=== PATIENT | male | born 1960 | race Caucasian/White ===

== ENCOUNTER 2018-11-25 23:29 | Inpatient (IN) | payer BC, OTHER ==
[2018-11-26] MEDS ORDERED: Sodium Chloride 0.9% 10 ML Syringe FLUSH PRN (00:07)
[2018-11-26] MEDS ORDERED: Sodium Chloride 0.9% 1,000 ML IV STA (00:07)
[2018-11-26] MEDS ORDERED: Ondansetron 4 MG/2 ML SDV IVPUSH ONE (00:07)
[2018-11-26] MEDS ORDERED: Pantoprazole 40 MG Vial IVPUSH ONE (00:10)
[2018-11-26] MEDS: Pantoprazole 80 MG in Sodium Chloride 0.9% 100 ML IV SCH ×2 (00:25→10:45)
[2018-11-26] MEDS ORDERED: Sodium Chloride 0.9% 1,000 ML ONE (01:38)
[2018-11-26] MEDS ORDERED: Iopamidol 612 MG/ML 100 ML Bottle IVPUSH ONE (01:54)
--- NOTE | 2018-11-26 02:09 | EDM.PDOC ---
ED HPI GENERAL MEDICAL PROBLEM - General Chief Complaint: Gastrointestinal Problem Stated Complaint: BLOOD IN STOOL/DIZZY Time Seen by Provider: 11/25/18 23:56 Source of Information: Reports: Patient History Limitations: Reports: No Limitations - History of Present Illness INITIAL COMMENTS - FREE TEXT/NARRATIVE: The patient presents with dark stools and syncope. He says on Monday he did not feel right. He had some stomach pain and felt bloated. He took some prune juice and Monday he had some large stools. He continued to have more stools through the weekend and then they turned black with some red to them. He has not had trouble like this before. He has no history of ulcers. He has no history of drinking alcohol excessively. He may have a drink sometimes with dinner. He said he got up this morning to use the restroom and he got lightheaded and passed out. He did hit his head but he has no headache or neck pain. He does have an abrasion to the back of his head. He is not on any blood thinners and he has no other medical problems. He has no chest pain or shortness of breath. He has no nausea or vomiting now. When this all started he had some nausea but no vomiting. He has no abdominal pain. He did have a colonoscopy about 6 to 8 months ago that did show a couple polyps. Onset: Gradual Duration: Day(s): Improves with: Reports: None Worsens with: Reports: None Associated Symptoms: Denies: Chest Pain, Cough, Fever/Chills, Headaches, Nausea/ Vomiting, Shortness of Breath - Related Data Allergies Allergy/AdvReac Type Severity Reaction Status Date / Time No Known Allergies Allergy Verified 11/25/18 23:41 Home Meds: Home Meds . [No Known Home Meds] 11/25/18 [History] Past Medical History - Past Surgical History GI Surgical History: Reports: Colonoscopy Other GI Surgeries/Procedures: polyps Social & Family History - Tobacco Use Smoking Status *Q: Never Smoker - Caffeine Use Caffeine Use: Reports: Coffee - Recreational Drug Use Recreational Drug Use: No ED ROS GENERAL - Review of Systems Review Of Systems: See Below Constitutional: Reports: No Symptoms HEENT: Reports: No Symptoms Respiratory: Reports: No Symptoms Cardiovascular: Reports: Lightheadedness. Denies: Chest Pain Endocrine: Reports: No Symptoms GI/Abdominal: Reports: Black Stool, Nausea (Improved). Denies: Abdominal Pain, Vomiting : Reports: No Symptoms Musculoskeletal: Reports: No Symptoms ED EXAM, GI/ABD - Physical Exam Exam: See Below Exam Limited By: No Limitations General Appearance: Alert, No Apparent Distress Ears: Normal External Exam Nose: Normal Inspection Head: Normocephalic, Other (Abrasion to the occipital region) Neck: Normal Inspection, Supple, Non-Tender Respiratory/Chest: No Respiratory Distress, Lungs Clear, Normal Breath Sounds Cardiovascular: Regular Rate, Rhythm, No Edema, No Murmur GI/Abdominal Exam: Soft, Non-Tender, No Organomegaly, No Mass Rectal (Males) Exam: Black Stool, Heme + Stool Extremities: Normal Inspection Neurological: Alert, Oriented, No Motor/Sensory Deficits Course - Vital Signs Last Recorded V/S: Last Vital Signs Temp 96.9 F 11/25/18 23:33 Pulse 98 11/25/18 23:33 Resp 16 11/25/18 23:33 BP 131/83 11/25/18 23:33 Pulse Ox 100 11/25/18 23:33 Orthostatic Blood Pressure [ 75/55 Standing] Orthostatic Blood Pressure [ 100/63 Sitting] Orthostatic Blood Pressure [ 116/68 Supine] - Orders/Labs/Meds Orders: Active Orders 24 hr Category Date Time Status Orthostatic Vital Signs [RC] ASDIRECTED Care 11/25/18 23:39 Active Peripheral IV Care [RC] . DIRECTED Care 11/26/18 00:07 Active Abdomen Pelvis w Cont [CT] Stat Exams 11/26/18 00:07 Taken PATIENT RETYPE [BBK] Routine Lab 11/26/18 01:30 Ordered RED BLOOD CELLS LP [BBK] Stat Lab 11/26/18 01:30 Ordered Pantoprazole [ProTONIX IV] 80 mg Med 11/26/18 00:15 Active Sodium Chloride 0.9% [Normal Saline] 100 ml IV Q10H Sodium Chloride 0.9% [Saline Flush] Med 11/26/18 00:07 Active 10 ml FLUSH ASDIRECTED PRN ED Antiemetic Medication Reflex [OM.PC] Stat Oth 11/26/18 00:07 Ordered Peripheral IV Insertion Adult [OM.PC] Stat Oth 11/26/18 00:07 Ordered Transfuse PRBC [Transfuse Red Blood Cells] [COMM] Stat Oth 11/26/18 02:45 Ordered Medication Orders Pantoprazole Sodium 80 mg/ (Sodium Chloride) 100 mls @ 10 mls/hr IV Q10H [facility] Last Admin: 11/26/18 00:25 Dose: 10 mls/hr Sodium Chloride (Saline Flush) 10 ml FLUSH ASDIRECTED PRN PRN Reason: Keep Vein Open Last Admin: 11/26/18 00:27 Dose: 10 ml Labs: Laboratory Tests 11/26/18 11/26/18 11/26/18 Range/Units 00:00 00:00 00:00 WBC 6.90 (4.23-9.07) K/mm3 RBC 2.83 L (4.63-6.08) M/mm3 Hgb 8.8 L (13.7-17.5) gm/L Hct 25.5 L (40.1-51.0) % MCV 90.1 (79.0-92.2) fl MCH 31.1 (25.7-32.2) pg MCHC 34.5 (32.2-35.5) g/dl RDW Std Deviation 38.8 (35.1-43.9) fL Plt Count 201 (163-337) K/mm3 MPV 9.5 (9.4-12.3) fl Neut % (Auto) 58.1 (34.0-67.9) % Lymph % (Auto) 25.2 (21.8-53.1) % [place] % (Auto) 13.2 H (5.3-12.2) % Eos % (Auto) 2.8 (0.8-7.0) Baso % (Auto) 0.6 (0.1-1.2) % Neut # (Auto) 4.01 (1.78-5.38) K/mm3 Lymph # (Auto) 1.74 (1.32-3.57) K/mm3 [place] # (Auto) 0.91 H (0.30-0.82) K/mm3 Eos # (Auto) 0.19 (0.04-0.54) K/mm3 Baso # (Auto) 0.04 (0.01-0.08) K/mm3 Sodium 138 (136-145) mEq/L Potassium 3.6 (3.5-5.1) mEq/L Chloride 106 (98-107) mEq/L Carbon Dioxide 23 (21-32) mEq/L Anion Gap 12.6 (5-15) BUN 48 H (7-18) mg/dL Creatinine 1.0 (0.7-1.3) mg/dL Est Cr Clr Drug Dosing 88.38 mL/min Estimated GFR (MDRD) > 60 (>60) mL/min BUN/Creatinine Ratio 48.0 H (14-18) Glucose 136 H (74-106) mg/dL Calcium 7.6 L (8.5-10.1) mg/dL Total Bilirubin 0.4 (0.2-1.0) mg/dL AST 12 L (15-37) U/L ALT 20 (16-63) U/L Alkaline Phosphatase 55 (46-116) U/L Total Protein 5.1 L (6.4-8.2) g/dl Albumin 2.8 L (3.4-5.0) g/dl Globulin 2.3 gm/dL Albumin/Globulin Ratio 1.2 (1-2) Lipase 79 (73-393) U/L Blood Type O POSITIVE Gel Antibody Screen Negative 11/26/18 Range/Units 02:24 WBC (4.23-9.07) K/mm3 RBC (4.63-6.08) M/mm3 Hgb 7.8 L (13.7-17.5) gm/L Hct 23.0 L (40.1-51.0) % MCV (79.0-92.2) fl MCH (25.7-32.2) pg MCHC (32.2-35.5) g/dl RDW Std Deviation (35.1-43.9) fL Plt Count (163-337) K/mm3 MPV (9.4-12.3) fl Neut % (Auto) (34.0-67.9) % Lymph % (Auto) (21.8-53.1) % [place] % (Auto) (5.3-12.2) % Eos % (Auto) (0.8-7.0) Baso % (Auto) (0.1-1.2) % Neut # (Auto) (1.78-5.38) K/mm3 Lymph # (Auto) (1.32-3.57) K/mm3 [place] # (Auto) (0.30-0.82) K/mm3 Eos # (Auto) (0.04-0.54) K/mm3 Baso # (Auto) (0.01-0.08) K/mm3 Sodium (136-145) mEq/L Potassium (3.5-5.1) mEq/L Chloride (98-107) mEq/L Carbon Dioxide (21-32) mEq/L Anion Gap (5-15) BUN (7-18) mg/dL Creatinine (0.7-1.3) mg/dL Est Cr Clr Drug Dosing mL/min Estimated GFR (MDRD) (>60) mL/min BUN/Creatinine Ratio (14-18) Glucose (74-106) mg/dL Calcium (8.5-10.1) mg/dL Total Bilirubin (0.2-1.0) mg/dL AST (15-37) U/L ALT (16-63) U/L Alkaline Phosphatase (46-116) U/L Total Protein (6.4-8.2) g/dl Albumin (3.4-5.0) g/dl Globulin gm/dL Albumin/Globulin Ratio (1-2) Lipase (73-393) U/L Blood Type Gel Antibody Screen Meds: Medications Generic Name Dose Route Start Last Admin Trade Name Freq PRN Reason Stop Dose Admin Pantoprazole Sodium 80 mg/ 100 mls @ 10 mls/hr 11/26/18 00:15 11/26/18 00:25 Sodium Chloride IV 10 mls/hr Q10H [facility] Administration Sodium Chloride 10 ml 11/26/18 00:07 11/26/18 00:27 Saline Flush FLUSH 10 ml ASDIRECTED PRN Administration Keep Vein Open Discontinued Medications Generic Name Dose Route Start Last Admin Trade Name Freq PRN Reason Stop Dose Admin Sodium Chloride 1,000 mls @ 1,000 mls/hr 11/26/18 00:07 11/26/18 00:21 Normal Saline IV 11/26/18 01:06 1,000 mls/hr .BOLUS STA Administration Sodium Chloride Confirm 11/26/18 01:38 Normal Saline Administered 11/26/18 01:39 Dose 1,000 mls @ as directed .ROUTE .STK-MED ONE Iopamidol 100 ml 11/26/18 01:54 11/26/18 01:57 Isovue-300 (61%) IVPUSH 11/26/18 01:55 100 ml ONETIME ONE Administration Ondansetron HCl 4 mg 11/26/18 00:07 11/26/18 00:22 Zofran IVPUSH 11/26/18 00:08 4 mg ONETIME ONE Administration Pantoprazole Sodium 80 mg 11/26/18 00:10 11/26/18 00:23 Protonix Iv IVPUSH 11/26/18 00:11 80 mg BOLUS ONE Administration - Re-Assessments/Exams Free Text/Narrative Re-Assessment/Exam: 11/26/18 02:10 I ordered an IV NS 1L bolus. With orthostatic BPs his blood pressure dropped into the 70s with standing and he was symptomatic. I also ordered labs, zofran 4mg IV, protonix bolus of 80mg IV and a drip at 8mg/hr, labs and a CT of his abdomen and pelvis. His Hgb is 8.8. His BUN was 48. His glucose was 136. He got light headed and dizzy when they got him up to go to the CT. His BP was 112/60. I ordered another liter of fluid. 11/26/18 02:[address] shows nondilated fluid/oral contrast filled small bowel loops with possible mild proximal small bowel wall thickening. Liquid stool/liquid oral contrast within the colon. Findings can suggest gastroenteritis/diarrheal disease. No CT findings or acute appendicitis. Additional nonemergent CT findings. I ordered a repeat HH and his Hgb dropped to 7.8. I ordered 2 units of PRBCs. I feel he needs to be admitted. I called Dr Glass and he agreed to the admission. I also called Dr Pastrana and she was willing to be on consult. Departure - Departure Time of Disposition: 04:00 Disposition: Admitted As Inpatient 65 Condition: Serious Clinical Impression: Orthostatic hypotension GI bleed Qualifiers: GI bleed type/associated pathology: melena Qualified Code(s): K92.1 - Melena Anemia Qualifiers: Anemia type: other cause Other causes of anemia: other cause, not classified Qualified Code(s): D64.89 - Other specified anemias - Discharge Information Referrals: Dick Espino MD [Primary Care Provider] - Forms: ED Department Discharge - My Orders Last 24 Hours: My Active Orders 11/25/18 23:39 Orthostatic Vital Signs [RC] ASDIRECTED 11/26/18 00:07 Peripheral IV Care [RC] . DIRECTED Abdomen Pelvis w Cont [CT] Stat Sodium Chloride 0.9% [Saline Flush] 10 ml FLUSH ASDIRECTED PRN ED Antiemetic Medication Reflex [OM.PC] Stat Peripheral IV Insertion Adult [OM.PC] Stat 11/26/18 00:15 Pantoprazole [ProTONIX IV] 80 mg Sodium Chloride 0.9% [Normal Saline] 100 ml IV Q10H 11/26/18 01:30 PATIENT RETYPE [BBK] Routine RED BLOOD CELLS LP [BBK] Stat 11/26/18 02:45 Transfuse PRBC [Transfuse Red Blood Cells] [COMM] Stat - Assessment/Plan Last 24 Hours: My Active Orders 11/25/18 23:39 Orthostatic Vital Signs [RC] ASDIRECTED 11/26/18 00:07 Peripheral IV Care [RC] . DIRECTED Abdomen Pelvis w Cont [CT] Stat Sodium Chloride 0.9% [Saline Flush] 10 ml FLUSH ASDIRECTED PRN ED Antiemetic Medication Reflex [OM.PC] Stat Peripheral IV Insertion Adult [OM.PC] Stat 11/26/18 00:15 Pantoprazole [ProTONIX IV] 80 mg Sodium Chloride 0.9% [Normal Saline] 100 ml IV Q10H 11/26/18 01:30 PATIENT RETYPE [BBK] Routine RED BLOOD CELLS LP [BBK] Stat 11/26/18 02:45 Transfuse PRBC [Transfuse Red Blood Cells] [COMM] Stat
--- NOTE | 2018-11-26 07:43 | PCM.HP ---
H&P History of Present Illness - General Date of Service: 11/26/18 Admit Problem/Dx: Admission Diagnosis/Problem Admission Diagnosis/Problem GI bleed not requiring more than 4 units of blood in 24 hours, ICU, or surgery Source of Information: Patient, Old Records, Provider, RN, RN Notes Reviewed History Limitations: Reports: No Limitations - Related Data Allergies/Adverse Reactions: Allergies Allergy/AdvReac Type Severity Reaction Status Date / Time No Known Allergies Allergy Verified 11/26/18 04:44 Home Medications: Home Meds . [No Known Home Meds] 11/25/18 [History] Past Medical History - Past Health History Medical/Surgical History: Denies Medical/Surgical History - Past Surgical History GI Surgical History: Reports: Colonoscopy Other GI Surgeries/Procedures: polyps Social & Family History - Tobacco Use Smoking Status *Q: Never Smoker Second Hand Smoke Exposure: No - Caffeine Use Caffeine Use: Reports: None - Recreational Drug Use Recreational Drug Use: No Exam - Vital Signs Vital Signs: Last Vital Signs Temp 98.1 F 11/26/18 06:36 Pulse 79 11/26/18 06:36 Resp 19 11/26/18 06:36 BP 132/70 11/26/18 06:24 Pulse Ox 100 11/26/18 04:29 Orthostatic Blood Pressure [ 75/55 Standing] Orthostatic Blood Pressure [ 100/63 Sitting] Orthostatic Blood Pressure [ 116/68 Supine] Weight: 231 lb 11.2 oz - Patient Data Lab Results Last 24 hrs: Laboratory Results - last 24 hr 11/26/18 11/26/18 11/26/18 Range/Units 00:00 00:00 00:00 WBC 6.90 (4.23-9.07) K/mm3 RBC 2.83 L (4.63-6.08) M/mm3 Hgb 8.8 L (13.7-17.5) gm/L Hct 25.5 L (40.1-51.0) % MCV 90.1 (79.0-92.2) fl MCH 31.1 (25.7-32.2) pg MCHC 34.5 (32.2-35.5) g/dl RDW Std Deviation 38.8 (35.1-43.9) fL Plt Count 201 (163-337) K/mm3 MPV 9.5 (9.4-12.3) fl Neut % (Auto) 58.1 (34.0-67.9) % Lymph % (Auto) 25.2 (21.8-53.1) % [place] % (Auto) 13.2 H (5.3-12.2) % Eos % (Auto) 2.8 (0.8-7.0) Baso % (Auto) 0.6 (0.1-1.2) % Neut # (Auto) 4.01 (1.78-5.38) K/mm3 Lymph # (Auto) 1.74 (1.32-3.57) K/mm3 [place] # (Auto) 0.91 H (0.30-0.82) K/mm3 Eos # (Auto) 0.19 (0.04-0.54) K/mm3 Baso # (Auto) 0.04 (0.01-0.08) K/mm3 Sodium 138 (136-145) mEq/L Potassium 3.6 (3.5-5.1) mEq/L Chloride 106 (98-107) mEq/L Carbon Dioxide 23 (21-32) mEq/L Anion Gap 12.6 (5-15) BUN 48 H (7-18) mg/dL Creatinine 1.0 (0.7-1.3) mg/dL Est Cr Clr Drug Dosing 88.38 mL/min Estimated GFR (MDRD) > 60 (>60) mL/min BUN/Creatinine Ratio 48.0 H (14-18) Glucose 136 H (74-106) mg/dL Calcium 7.6 L (8.5-10.1) mg/dL Total Bilirubin 0.4 (0.2-1.0) mg/dL AST 12 L (15-37) U/L ALT 20 (16-63) U/L Alkaline Phosphatase 55 (46-116) U/L Total Protein 5.1 L (6.4-8.2) g/dl Albumin 2.8 L (3.4-5.0) g/dl Globulin 2.3 gm/dL Albumin/Globulin Ratio 1.2 (1-2) Lipase 79 (73-393) U/L Blood Type O POSITIVE Gel Antibody Screen Negative Crossmatch See Detail 11/26/18 11/26/18 Range/Units 02:24 02:24 WBC (4.23-9.07) K/mm3 RBC (4.63-6.08) M/mm3 Hgb 7.8 L (13.7-17.5) gm/L Hct 23.0 L (40.1-51.0) % MCV (79.0-92.2) fl MCH (25.7-32.2) pg MCHC (32.2-35.5) g/dl RDW Std Deviation (35.1-43.9) fL Plt Count (163-337) K/mm3 MPV (9.4-12.3) fl Neut % (Auto) (34.0-67.9) % Lymph % (Auto) (21.8-53.1) % [place] % (Auto) (5.3-12.2) % Eos % (Auto) (0.8-7.0) Baso % (Auto) (0.1-1.2) % Neut # (Auto) (1.78-5.38) K/mm3 Lymph # (Auto) (1.32-3.57) K/mm3 [place] # (Auto) (0.30-0.82) K/mm3 Eos # (Auto) (0.04-0.54) K/mm3 Baso # (Auto) (0.01-0.08) K/mm3 Sodium (136-145) mEq/L Potassium (3.5-5.1) mEq/L Chloride (98-107) mEq/L Carbon Dioxide (21-32) mEq/L Anion Gap (5-15) BUN (7-18) mg/dL Creatinine (0.7-1.3) mg/dL Est Cr Clr Drug Dosing mL/min Estimated GFR (MDRD) (>60) mL/min BUN/Creatinine Ratio (14-18) Glucose (74-106) mg/dL Calcium (8.5-10.1) mg/dL Total Bilirubin (0.2-1.0) mg/dL AST (15-37) U/L ALT (16-63) U/L Alkaline Phosphatase (46-116) U/L Total Protein (6.4-8.2) g/dl Albumin (3.4-5.0) g/dl Globulin gm/dL Albumin/Globulin Ratio (1-2) Lipase (73-393) U/L Blood Type Gel Antibody Screen Crossmatch See Detail Result Diagrams: 11/26/18 02:24 11/26/18 00:00 Orders Last 24hrs: Active Orders 24 hr Category Date Time Status Patient Status [ADT] Routine ADT 11/26/18 03:57 Active Notify Provider Consults [RC] ASDIRECTED Care 11/26/18 03:04 Active Orthostatic Vital Signs [RC] ASDIRECTED Care 11/25/18 23:39 Active Consult to Physician [CONS] Routine Cons 11/26/18 03:03 Active Abdomen Pelvis w Cont [CT] Stat Exams 11/26/18 00:07 Taken Pantoprazole [ProTONIX IV] 80 mg Med 11/26/18 00:15 Active Sodium Chloride 0.9% [Normal Saline] 100 ml IV Q10H Sodium Chloride 0.9% [Saline Flush] Med 11/26/18 00:07 Active 10 ml FLUSH ASDIRECTED PRN ED Antiemetic Medication Reflex [OM.PC] Stat Oth 11/26/18 00:07 Ordered Peripheral IV Insertion Adult [OM.PC] Stat Oth 11/26/18 00:07 Ordered Transfuse PRBC [Transfuse Red Blood Cells] [COMM] Stat Oth 11/26/18 02:45 Ordered Code Status [Resuscitation Status] Routine Resus Stat 11/26/18 04:49 Ordered Medication Orders Pantoprazole Sodium 80 mg/ (Sodium Chloride) 100 mls @ 10 mls/hr IV Q10H [facility] Last Admin: 11/26/18 00:25 Dose: 10 mls/hr Sodium Chloride (Saline Flush) 10 ml FLUSH ASDIRECTED PRN PRN Reason: Keep Vein Open Last Admin: 11/26/18 00:27 Dose: 10 ml
--- NOTE | 2018-11-26 08:43 | PCM.PREANE ---
Preanesthetic Assessment - Physical Assessment Vital Signs: Last Vital Signs Temp 37.2 C 11/26/18 08:00 Pulse 79 11/26/18 06:36 Resp 16 11/26/18 08:00 BP 125/68 11/26/18 08:00 Pulse Ox 95 11/26/18 08:28 Orthostatic Blood Pressure [ 75/55 Standing] Orthostatic Blood Pressure [ 100/63 Sitting] Orthostatic Blood Pressure [ 116/68 Supine] - Lab Values: Laboratory Last Values WBC 6.90 K/mm3 (4.23-9.07) 11/26/18 00:00 RBC 2.83 M/mm3 (4.63-6.08) L 11/26/18 00:00 Hgb 7.8 gm/L (13.7-17.5) L 11/26/18 02:24 Hct 23.0 % (40.1-51.0) L 11/26/18 02:24 MCV 90.1 fl (79.0-92.2) 11/26/18 00:00 MCH 31.1 pg (25.7-32.2) 11/26/18 00:00 MCHC 34.5 g/dl (32.2-35.5) 11/26/18 00:00 RDW Std Deviation 38.8 fL (35.1-43.9) 11/26/18 00:00 Plt Count 201 K/mm3 (163-337) 11/26/18 00:00 MPV 9.5 fl (9.4-12.3) 11/26/18 00:00 Neut % (Auto) 58.1 % (34.0-67.9) 11/26/18 00:00 Lymph % (Auto) 25.2 % (21.8-53.1) 11/26/18 00:00 [place] % (Auto) 13.2 % (5.3-12.2) H 11/26/18 00:00 Eos % (Auto) 2.8 (0.8-7.0) 11/26/18 00:00 Baso % (Auto) 0.6 % (0.1-1.2) 11/26/18 00:00 Neut # (Auto) 4.01 K/mm3 (1.78-5.38) 11/26/18 00:00 Lymph # (Auto) 1.74 K/mm3 (1.32-3.57) 11/26/18 00:00 [place] # (Auto) 0.91 K/mm3 (0.30-0.82) H 11/26/18 00:00 Eos # (Auto) 0.19 K/mm3 (0.04-0.54) 11/26/18 00:00 Baso # (Auto) 0.04 K/mm3 (0.01-0.08) 11/26/18 00:00 Sodium 138 mEq/L (136-145) 11/26/18 00:00 Potassium 3.6 mEq/L (3.5-5.1) 11/26/18 00:00 Chloride 106 mEq/L (98-107) 11/26/18 00:00 Carbon Dioxide 23 mEq/L (21-32) 11/26/18 00:00 Anion Gap 12.6 (5-15) 11/26/18 00:00 BUN 48 mg/dL (7-18) H 11/26/18 00:00 Creatinine 1.0 mg/dL (0.7-1.3) 11/26/18 00:00 Est Cr Clr Drug Dosing 88.38 mL/min 11/26/18 00:00 Estimated GFR (MDRD) > 60 mL/min (>60) 11/26/18 00:00 BUN/Creatinine Ratio 48.0 (14-18) H 11/26/18 00:00 Glucose 136 mg/dL (74-106) H 11/26/18 00:00 Calcium 7.6 mg/dL (8.5-10.1) L 11/26/18 00:00 Total Bilirubin 0.4 mg/dL (0.2-1.0) 11/26/18 00:00 AST 12 U/L (15-37) L 11/26/18 00:00 ALT 20 U/L (16-63) 11/26/18 00:00 Alkaline Phosphatase 55 U/L (46-116) 11/26/18 00:00 Total Protein 5.1 g/dl (6.4-8.2) L 11/26/18 00:00 Albumin 2.8 g/dl (3.4-5.0) L 11/26/18 00:00 Globulin 2.3 gm/dL 11/26/18 00:00 Albumin/Globulin Ratio 1.2 (1-2) 11/26/18 00:00 Lipase 79 U/L (73-393) 11/26/18 00:00 Blood Type O POSITIVE 11/26/18 00:00 Gel Antibody Screen Negative 11/26/18 00:00 Crossmatch See Detail 11/26/18 02:24 - Allergies Allergies/Adverse Reactions: Allergies Allergy/AdvReac Type Severity Reaction Status Date / Time No Known Allergies Allergy Verified 11/26/18 04:44 PreAnesthesia Questionnaire - Past Health History Medical/Surgical History: Denies Medical/Surgical History - Past Surgical History GI Surgical History: Reports: Colonoscopy Other GI Surgeries/Procedures: polyps - SUBSTANCE USE Smoking Status *Q: Never Smoker Second Hand Smoke Exposure: No Recreational Drug Use History: No - HOME MEDS Home Medications: Home Meds Pantoprazole Sodium [Protonix] 40 mg PO BID #60 tablet. 11/27/18 [Rx] - CURRENT (IN HOUSE) MEDS Current Meds: Current Medications Pantoprazole Sodium 80 mg/ (Sodium Chloride) 100 mls @ 10 mls/hr IV Q10H [facility] Last Admin: 11/26/18 00:25 Dose: 10 mls/hr Sodium Chloride (Saline Flush) 10 ml FLUSH ASDIRECTED PRN PRN Reason: Keep Vein Open Last Admin: 11/26/18 00:27 Dose: 10 ml Discontinued Medications Sodium Chloride (Normal Saline) 1,000 mls @ 1,000 mls/hr IV .BOLUS STA Stop: 11/26/18 01:06 Last Admin: 11/26/18 00:21 Dose: 1,000 mls/hr Sodium Chloride (Normal Saline) Confirm Administered Dose 1,000 mls @ as directed .ROUTE .STK-MED ONE Stop: 11/26/18 01:39 Last Admin: 11/26/18 04:51 Dose: Not Given Iopamidol (Isovue-300 (61%)) 100 ml IVPUSH ONETIME ONE Stop: 11/26/18 01:55 Last Admin: 11/26/18 01:57 Dose: 100 ml Ondansetron HCl (Zofran) 4 mg IVPUSH ONETIME ONE Stop: 11/26/18 00:08 Last Admin: 11/26/18 00:22 Dose: 4 mg Pantoprazole Sodium (Protonix Iv) 80 mg IVPUSH BOLUS ONE Stop: 11/26/18 00:11 Last Admin: 11/26/18 00:23 Dose: 80 mg
[2018-11-26] MEDS ORDERED: Lactated Ringers 1,000 ML IV SCH (10:30)
[2018-11-26] MEDS ORDERED: Ondansetron 4 MG/2 ML SDV IV PRN (10:39)
--- NOTE | 2018-11-26 10:41 | CT ---
CT abdomen and pelvis Technique: Multiple axial sections were obtained from above the dome of the diaphragm inferiorly through the pubic symphysis. Intravenous and oral contrast was utilized. Delayed images were obtained through the bladder. Comparison: No prior abdominal imaging. Findings: Small portion of the visualized lung bases are clear. Liver contains no focal parenchymal abnormality. Spleen appears within normal limits. Adrenal glands show no nodule. Pancreas is within normal limits. Kidneys show symmetric contrast enhancement without hydronephrosis or mass. Gallbladder contains no calcified gallstones. Kidneys show symmetric contrast enhancement without hydronephrosis or mass. Aorta shows atherosclerotic calcification without aneurysm. No retroperitoneal adenopathy is seen. Appendix is seen which is normal in size. No pelvic mass or adenopathy is seen. Contrast seen within nondilated small bowel loops as well as within colon. No evidence of small bowel obstruction is seen. Bone window settings were reviewed which show disc space narrowing at L5-S1 with vacuum phenomena. Lesser disc space narrowing with anterior endplate osteophytes are seen within the lower thoracic spine. Delayed images show contrast within the distal ureter and bladder. Impression: 1. Incidental findings. Nothing acute is appreciated. Diagnostic code #2 I agree with preliminary report from [facility], finalized on 11/26/18, 3:26 AM Central Time , code #2
[2018-11-26] MEDS ORDERED: Magnesium Sulfate/Water 4 GM in Premix Bag 1 BAG IV ONE (10:45)
--- NOTE | 2018-11-26 11:06 | PCM.HP ---
H&P History of Present Illness - General Date of Service: 11/26/18 Admit Problem/Dx: Admission Diagnosis/Problem Admission Diagnosis/Problem GI bleed not requiring more than 4 units of blood in 24 hours, ICU, or surgery - History of Present Illness Initial Comments - Free Text/Narative: Through the emergency room for admission secondary to a GI bleed. He states that 10:30 PM last night patient woke up with crampy abdominal pain, stool incontinence, and syncope. Patient will wait into the bathroom became lightheaded and passed out. Patient had difficulty getting up but when he did he had black tarry stool with solid fecal matter and watery stool. Patient did hit the back of his head and had a small abrasion evaluate by ER. Patient came to the emergency room with dizziness and was noted to be anemic with an initial hemoglobin of 8.8. Patient was also orthostatic and repeat hemoglobin after fluid resuscitation was 7.8. Patient had 2 more dark stools in the emergency room and a maroon color stool when he arrived on the floor. He received 2 units packed red blood cells this morning. Currently patient denies any lower abdominal pain. Patient states that a couple of weeks ago he did develop some digestive system problems. He generally describes it as dyspepsia and not feeling right. He took some NyQuil, prune juice, and Advil. He states over the last couple weeks he's had Advil 600 mg 2 times per week. On Monday he also had some reflux while at work and went home. He did work Monday and Monday, but after going to sleep Monday night came into the hospital. He is a nonsmoker quit 5 years ago. He smoked for approximately 20 years but less than one pack per day. Only occasional alcohol and no illicit drugs. - Related Data Allergies/Adverse Reactions: Allergies Allergy/AdvReac Type Severity Reaction Status Date / Time No Known Allergies Allergy Verified 11/26/18 04:44 Home Medications: Home Meds . [No Known Home Meds] 11/25/18 [History] Past Medical History - Past Health History Medical/Surgical History: Denies Medical/Surgical History - Past Surgical History GI Surgical History: Reports: Colonoscopy Other GI Surgeries/Procedures: polyps Social & Family History - Tobacco Use Smoking Status *Q: Never Smoker Second Hand Smoke Exposure: No - Caffeine Use Caffeine Use: Reports: None - Recreational Drug Use Recreational Drug Use: No H&P Review of Systems - Review of Systems: Review Of Systems: ROS reveals no pertinent complaints other than HPI. General: Reports: Fatigue, Decreased Appetite Exam - Exam Exam: See Below - Vital Signs Vital Signs: Last Vital Signs Temp 99 F 11/26/18 08:50 Pulse 81 11/26/18 08:42 Resp 16 11/26/18 08:50 BP 106/69 11/26/18 08:50 Pulse Ox 95 11/26/18 08:50 Orthostatic Blood Pressure [ 75/55 Standing] Orthostatic Blood Pressure [ 100/63 Sitting] Orthostatic Blood Pressure [ 116/68 Supine] Weight: 231 lb 11.2 oz - Exam Quality Assessment: Supplemental Oxygen General: Alert, Oriented HEENT: Conjunctiva Clear, Mucosa Moist & [place], Posterior Pharynx Clear Neck: Supple, Trachea Midline Lungs: Clear to Auscultation, Normal Respiratory Effort Cardiovascular: Regular Rate, Regular Rhythm GI/Abdominal Exam: Normal Bowel Sounds, Soft, Non-Tender, No Organomegaly, No Distention Extremities: Normal Inspection, Normal Range of Motion, Non-Tender, No Pedal Edema Skin: Warm, Dry, Intact Neurological: Cranial Nerves Intact, Reflexes Equal Bilateral Neuro Extensive - Mental Status: Alert, Oriented x3, Normal Mood/Affect, Normal Cognition Neuro Extensive - Motor, Sensory, Reflexes: CN II-XII Intact Psychiatric: Alert, Normal Affect, Normal Mood - Patient Data Lab Results Last 24 hrs: Laboratory Results - last 24 hr 11/26/18 11/26/18 11/26/18 Range/Units 00:00 00:00 00:00 WBC 6.90 (4.23-9.07) K/mm3 RBC 2.83 L (4.63-6.08) M/mm3 Hgb 8.8 L (13.7-17.5) gm/L Hct 25.5 L (40.1-51.0) % MCV 90.1 (79.0-92.2) fl MCH 31.1 (25.7-32.2) pg MCHC 34.5 (32.2-35.5) g/dl RDW Std Deviation 38.8 (35.1-43.9) fL Plt Count 201 (163-337) K/mm3 MPV 9.5 (9.4-12.3) fl Neut % (Auto) 58.1 (34.0-67.9) % Lymph % (Auto) 25.2 (21.8-53.1) % [place] % (Auto) 13.2 H (5.3-12.2) % Eos % (Auto) 2.8 (0.8-7.0) Baso % (Auto) 0.6 (0.1-1.2) % Neut # (Auto) 4.01 (1.78-5.38) K/mm3 Lymph # (Auto) 1.74 (1.32-3.57) K/mm3 [place] # (Auto) 0.91 H (0.30-0.82) K/mm3 Eos # (Auto) 0.19 (0.04-0.54) K/mm3 Baso # (Auto) 0.04 (0.01-0.08) K/mm3 Sodium 138 (136-145) mEq/L Potassium 3.6 (3.5-5.1) mEq/L Chloride 106 (98-107) mEq/L Carbon Dioxide 23 (21-32) mEq/L Anion Gap 12.6 (5-15) BUN 48 H (7-18) mg/dL Creatinine 1.0 (0.7-1.3) mg/dL Est Cr Clr Drug Dosing 88.38 mL/min Estimated GFR (MDRD) > 60 (>60) mL/min BUN/Creatinine Ratio 48.0 H (14-18) Glucose 136 H (74-106) mg/dL Calcium 7.6 L (8.5-10.1) mg/dL Magnesium (1.8-2.4) mg/dl Total Bilirubin 0.4 (0.2-1.0) mg/dL AST 12 L (15-37) U/L ALT 20 (16-63) U/L Alkaline Phosphatase 55 (46-116) U/L Total Protein 5.1 L (6.4-8.2) g/dl Albumin 2.8 L (3.4-5.0) g/dl Globulin 2.3 gm/dL Albumin/Globulin Ratio 1.2 (1-2) Lipase 79 (73-393) U/L Blood Type O POSITIVE Gel Antibody Screen Negative Crossmatch See Detail 11/26/18 11/26/18 11/26/18 Range/Units 02:24 02:24 10:07 WBC (4.23-9.07) K/mm3 RBC (4.63-6.08) M/mm3 Hgb 7.8 L (13.7-17.5) gm/L Hct 23.0 L (40.1-51.0) % MCV (79.0-92.2) fl MCH (25.7-32.2) pg MCHC (32.2-35.5) g/dl RDW Std Deviation (35.1-43.9) fL Plt Count (163-337) K/mm3 MPV (9.4-12.3) fl Neut % (Auto) (34.0-67.9) % Lymph % (Auto) (21.8-53.1) % [place] % (Auto) (5.3-12.2) % Eos % (Auto) (0.8-7.0) Baso % (Auto) (0.1-1.2) % Neut # (Auto) (1.78-5.38) K/mm3 Lymph # (Auto) (1.32-3.57) K/mm3 [place] # (Auto) (0.30-0.82) K/mm3 Eos # (Auto) (0.04-0.54) K/mm3 Baso # (Auto) (0.01-0.08) K/mm3 Sodium 139 (136-145) mEq/L Potassium 4.1 (3.5-5.1) mEq/L Chloride 105 (98-107) mEq/L Carbon Dioxide 24 (21-32) mEq/L Anion Gap 14.1 (5-15) BUN 26 H (7-18) mg/dL Creatinine 0.8 (0.7-1.3) mg/dL Est Cr Clr Drug Dosing 110.47 mL/min Estimated GFR (MDRD) > 60 (>60) mL/min BUN/Creatinine Ratio 32.5 H (14-18) Glucose 124 H (74-106) mg/dL Calcium 7.6 L (8.5-10.1) mg/dL Magnesium 1.5 L (1.8-2.4) mg/dl Total Bilirubin (0.2-1.0) mg/dL AST (15-37) U/L ALT (16-63) U/L Alkaline Phosphatase (46-116) U/L Total Protein (6.4-8.2) g/dl Albumin (3.4-5.0) g/dl Globulin gm/dL Albumin/Globulin Ratio (1-2) Lipase (73-393) U/L Blood Type Gel Antibody Screen Crossmatch See Detail 11/26/18 Range/Units 10:07 WBC 7.90 (4.23-9.07) K/mm3 RBC 3.14 L (4.63-6.08) M/mm3 Hgb 9.7 L D (13.7-17.5) gm/L Hct 27.7 L (40.1-51.0) % MCV 88.2 (79.0-92.2) fl MCH 30.9 (25.7-32.2) pg MCHC 35.0 (32.2-35.5) g/dl RDW Std Deviation 41.5 (35.1-43.9) fL Plt Count 177 (163-337) K/mm3 MPV 9.5 (9.4-12.3) fl Neut % (Auto) 75.4 H (34.0-67.9) % Lymph % (Auto) 14.4 L (21.8-53.1) % [place] % (Auto) 9.6 (5.3-12.2) % Eos % (Auto) 0.4 L (0.8-7.0) Baso % (Auto) 0.1 (0.1-1.2) % Neut # (Auto) 5.95 H (1.78-5.38) K/mm3 Lymph # (Auto) 1.14 L (1.32-3.57) K/mm3 [place] # (Auto) 0.76 (0.30-0.82) K/mm3 Eos # (Auto) 0.03 L (0.04-0.54) K/mm3 Baso # (Auto) 0.01 (0.01-0.08) K/mm3 Sodium (136-145) mEq/L Potassium (3.5-5.1) mEq/L Chloride (98-107) mEq/L Carbon Dioxide (21-32) mEq/L Anion Gap (5-15) BUN (7-18) mg/dL Creatinine (0.7-1.3) mg/dL Est Cr Clr Drug Dosing mL/min Estimated GFR (MDRD) (>60) mL/min BUN/Creatinine Ratio (14-18) Glucose (74-106) mg/dL Calcium (8.5-10.1) mg/dL Magnesium (1.8-2.4) mg/dl Total Bilirubin (0.2-1.0) mg/dL AST (15-37) U/L ALT (16-63) U/L Alkaline Phosphatase (46-116) U/L Total Protein (6.4-8.2) g/dl Albumin (3.4-5.0) g/dl Globulin gm/dL Albumin/Globulin Ratio (1-2) Lipase (73-393) U/L Blood Type Gel Antibody Screen Crossmatch Result Diagrams: 11/26/18 10:07 11/26/18 10:07 - Problem List (1) Anemia SNOMED Code(s): 330886220 ICD Code: D64.9 - ANEMIA, UNSPECIFIED Status: Acute Current Visit: Yes Qualifiers: Anemia type: other cause Other causes of anemia: other cause, not classified Qualified Code(s): D64.89 - Other specified anemias (2) GI bleed SNOMED Code(s): 61144462 ICD Code: K92.2 - GASTROINTESTINAL HEMORRHAGE, UNSPECIFIED Status: Acute Current Visit: Yes Qualifiers: GI bleed type/associated pathology: melena Qualified Code(s): K92.1 - Melena Problem List Initiated/Reviewed/Updated: Yes Orders Last 24hrs: Active Orders 24 hr Category Date Time Status Patient Status [ADT] Routine ADT 11/26/18 03:57 Active Antiembolic Devices [RC] PER UNIT ROUTINE Care 11/26/18 08:22 Active Notify Provider Consults [RC] ASDIRECTED Care 11/26/18 03:04 Active Orthostatic Vital Signs [RC] ASDIRECTED Care 11/25/18 23:39 Active Oxygen Therapy [RC] PRN Care 11/26/18 10:39 Ordered Up ad Nemo [RC] ASDIRECTED Care 11/26/18 10:39 Ordered VTE/DVT Education [RC] PER UNIT ROUTINE Care 11/26/18 10:39 Ordered Consult to Physician [CONS] Routine Cons 11/26/18 03:03 Active NPO [Nothing Per Oral Diet] [DIET] Diet 11/26/18 Lunch Active CBC WITH AUTO DIFF [HEME] AM Lab 11/27/18 05:11 Ordered COMPREHENSIVE METABOLIC PN,CMP [CHEM] AM Lab 11/27/18 05:11 Ordered HEMOGLOBIN/HEMATOCRIT,HH [HEME] Routine Lab 11/26/18 14:00 Ordered MAGNESIUM [CHEM] AM Lab 11/27/18 05:11 Ordered Lactated Ringers [Ringers, Lactated] 1,000 ml Med 11/26/18 10:30 Active IV ASDIRECTED Magnesium Sulfate/Water [Magnesium Sulfate in Water Med 11/26/18 10:45 Active Premix] 4 gm Premix Bag 1 bag IV ONETIME Ondansetron [Zofran] Med 11/26/18 10:39 Ordered 4 mg IV Q4H PRN Pantoprazole [ProTONIX IV] 80 mg Med 11/26/18 00:15 Active Sodium Chloride 0.9% [Normal Saline] 100 ml IV Q10H Sodium Chloride 0.9% [Saline Flush] Med 11/26/18 00:07 Active 10 ml FLUSH ASDIRECTED PRN ED Antiemetic Medication Reflex [OM.PC] Stat Oth 11/26/18 00:07 Ordered Peripheral IV Insertion Adult [OM.PC] Stat Oth 11/26/18 00:07 Ordered SCD [Sequential Compression Device] [OM.PC] Routine Oth 11/26/18 08:22 Ordered Transfuse PRBC [Transfuse Red Blood Cells] [COMM] Stat Ot 11/26/18 02:45 Ordered Code Status [Resuscitation Status] Routine Resus Stat 11/26/18 04:49 Ordered Medication Orders Pantoprazole Sodium 80 mg/ (Sodium Chloride) 100 mls @ 10 mls/hr IV Q10H [facility] Last Admin: 11/26/18 10:45 Dose: 10 mls/hr Infusion: 11/26/18 10:25 Dose: 10 mls/hr Admin: 11/26/18 00:25 Dose: 10 mls/hr Lactated Ringer's (Ringers, Lactated) 1,000 mls @ 125 mls/hr IV ASDIRECTED [facility] Last Admin: 11/26/18 10:48 Dose: 125 mls/hr Magnesium Sulfate 4 gm/ Premix 50 mls @ 12.5 mls/hr IV ONETIME ONE Stop: 11/26/18 14:44 Last Admin: 11/26/18 10:51 Dose: 12.5 mls/hr Ondansetron HCl (Zofran) 4 mg IV Q4H PRN PRN Reason: Nausea/Vomiting Sodium Chloride (Saline Flush) 10 ml FLUSH ASDIRECTED PRN PRN Reason: Keep Vein Open Last Admin: 11/26/18 00:27 Dose: 10 ml Assessment/Plan Comment:: assessment * 49-year-old male with no chronic medical history presents with acute melena and symptomatic anemia. * initial hemoglobin in the emergency room was 8.8 dropping to 7.8 with fluid resuscitation. * 2 units packed red blood cells were given by the emergency room physician * Surgery consult via the ER doctor Plan * Follow H&H every 4 hours until stable * Consult Dr. Pastrana in surgery * continue Protonix drip until seen by surgery * Nothing by mouth except ice chips * LR 125 ml/h * replenish magnesium * CODE STATUS: Full code * VT prophylaxis with SCDs * Length of stay likely 1-2 days. * No chronic medical problems
--- NOTE | 2018-11-26 15:27 | PCM.CONS ---
H&P History of Present Illness - General Date of Service: 11/26/18 Admit Problem/Dx: Admission Diagnosis/Problem Admission Diagnosis/Problem GI bleed not requiring more than 4 units of blood in 24 hours, ICU, or surgery Source of Information: Patient, Provider History Limitations: Reports: No Limitations - History of Present Illness Initial Comments - Free Text/Narative: The patient is a 57 y/o male who presents with melena. He reports not feeling well for the past two weeks with occasional abdominal pain. He tried prune juice for constipation, but did not fully have relief despite more frequent bowel movements. He had more pain 5 days ago and noted that his stool was darker in color. The pain was located in the epigastrium. He continued to have darker stool and more abdominal pain over the next couple of days. One day ago he was at home and had fiona melena after which she felt dizzy and lightheaded. The patient reports falling from weakness but did not have actual syncope. He presented to the emergency department where he underwent evaluation including labs that revealed hemoglobin of 8.8. Recheck of the hemoglobin after 1 hour was 7.8. He did have CT scan was not revealing for any acute findings. He was admitted for observation and monitoring of stable. He received 2 units of packed red blood cells. He reports having more melena since his admission but decreased amount. - Related Data Allergies/Adverse Reactions: Allergies Allergy/AdvReac Type Severity Reaction Status Date / Time No Known Allergies Allergy Verified 11/26/18 04:44 Home Medications: Home Meds . [No Known Home Meds] 11/25/18 [History] Past Medical History - Past Health History Medical/Surgical History: Denies Medical/Surgical History - Past Surgical History GI Surgical History: Reports: Colonoscopy Other GI Surgeries/Procedures: polyps Social & Family History - Family History Cardiac: Reports: IN - Tobacco Use Smoking Status *Q: Never Smoker Second Hand Smoke Exposure: No - Caffeine Use Caffeine Use: Reports: None - Recreational Drug Use Recreational Drug Use: No H&P Review of Systems - Review of Systems: Review Of Systems: See Below General: Reports: Weakness HEENT: Reports: No Symptoms Pulmonary: Reports: No Symptoms Cardiovascular: Reports: No Symptoms Gastrointestinal: Reports: Abdominal Pain, Black Stool, Nausea Genitourinary: Reports: No Symptoms Musculoskeletal: Reports: No Symptoms Skin: Reports: No Symptoms Psychiatric: Reports: No Symptoms Hematologic/Lymphatic: Reports: No Symptoms Immunologic: Reports: No Symptoms Exam - Exam Exam: See Below - Vital Signs Vital Signs: Last Vital Signs Temp 36.8 C 11/26/18 12:00 Pulse 81 11/26/18 08:42 Resp 16 11/26/18 12:00 BP 127/78 11/26/18 12:00 Pulse Ox 99 11/26/18 12:00 Orthostatic Blood Pressure [ 75/55 Standing] Orthostatic Blood Pressure [ 100/63 Sitting] Orthostatic Blood Pressure [ 116/68 Supine] Weight: 105.097 kg - Exam Quality Assessment: No: Supplemental Oxygen General: Alert, Oriented HEENT: Conjunctiva Clear, EOMI Neck: Supple Lungs: Clear to Auscultation, Normal Respiratory Effort Cardiovascular: Regular Rate, Regular Rhythm GI/Abdominal Exam: Soft, Non-Tender, No Distention Extremities: Normal Inspection, No Pedal Edema Peripheral Pulses: 2+: Dorsalis Pedis (L), Dorsalis Pedis (R) Skin: Warm, Dry, Intact Neurological: Cranial Nerves Intact Neuro Extensive - Mental Status: Oriented x3, Normal Mood/Affect - Patient Data Lab Results Last 24 hrs: Laboratory Results - last 24 hr 11/26/18 11/26/18 11/26/18 Range/Units 00:00 00:00 00:00 WBC 6.90 (4.23-9.07) K/mm3 RBC 2.83 L (4.63-6.08) M/mm3 Hgb 8.8 L (13.7-17.5) gm/L Hct 25.5 L (40.1-51.0) % MCV 90.1 (79.0-92.2) fl MCH 31.1 (25.7-32.2) pg MCHC 34.5 (32.2-35.5) g/dl RDW Std Deviation 38.8 (35.1-43.9) fL Plt Count 201 (163-337) K/mm3 MPV 9.5 (9.4-12.3) fl Neut % (Auto) 58.1 (34.0-67.9) % Lymph % (Auto) 25.2 (21.8-53.1) % [place] % (Auto) 13.2 H (5.3-12.2) % Eos % (Auto) 2.8 (0.8-7.0) Baso % (Auto) 0.6 (0.1-1.2) % Neut # (Auto) 4.01 (1.78-5.38) K/mm3 Lymph # (Auto) 1.74 (1.32-3.57) K/mm3 [place] # (Auto) 0.91 H (0.30-0.82) K/mm3 Eos # (Auto) 0.19 (0.04-0.54) K/mm3 Baso # (Auto) 0.04 (0.01-0.08) K/mm3 Sodium 138 (136-145) mEq/L Potassium 3.6 (3.5-5.1) mEq/L Chloride 106 (98-107) mEq/L Carbon Dioxide 23 (21-32) mEq/L Anion Gap 12.6 (5-15) BUN 48 H (7-18) mg/dL Creatinine 1.0 (0.7-1.3) mg/dL Est Cr Clr Drug Dosing 88.38 mL/min Estimated GFR (MDRD) > 60 (>60) mL/min BUN/Creatinine Ratio 48.0 H (14-18) Glucose 136 H (74-106) mg/dL Calcium 7.6 L (8.5-10.1) mg/dL Magnesium (1.8-2.4) mg/dl Total Bilirubin 0.4 (0.2-1.0) mg/dL AST 12 L (15-37) U/L ALT 20 (16-63) U/L Alkaline Phosphatase 55 (46-116) U/L Total Protein 5.1 L (6.4-8.2) g/dl Albumin 2.8 L (3.4-5.0) g/dl Globulin 2.3 gm/dL Albumin/Globulin Ratio 1.2 (1-2) Lipase 79 (73-393) U/L Blood Type O POSITIVE Gel Antibody Screen Negative Crossmatch See Detail 11/26/18 11/26/18 11/26/18 Range/Units 02:24 02:24 10:07 WBC (4.23-9.07) K/mm3 RBC (4.63-6.08) M/mm3 Hgb 7.8 L (13.7-17.5) gm/L Hct 23.0 L (40.1-51.0) % MCV (79.0-92.2) fl MCH (25.7-32.2) pg MCHC (32.2-35.5) g/dl RDW Std Deviation (35.1-43.9) fL Plt Count (163-337) K/mm3 MPV (9.4-12.3) fl Neut % (Auto) (34.0-67.9) % Lymph % (Auto) (21.8-53.1) % [place] % (Auto) (5.3-12.2) % Eos % (Auto) (0.8-7.0) Baso % (Auto) (0.1-1.2) % Neut # (Auto) (1.78-5.38) K/mm3 Lymph # (Auto) (1.32-3.57) K/mm3 [place] # (Auto) (0.30-0.82) K/mm3 Eos # (Auto) (0.04-0.54) K/mm3 Baso # (Auto) (0.01-0.08) K/mm3 Sodium 139 (136-145) mEq/L Potassium 4.1 (3.5-5.1) mEq/L Chloride 105 (98-107) mEq/L Carbon Dioxide 24 (21-32) mEq/L Anion Gap 14.1 (5-15) BUN 26 H (7-18) mg/dL Creatinine 0.8 (0.7-1.3) mg/dL Est Cr Clr Drug Dosing 110.47 mL/min Estimated GFR (MDRD) > 60 (>60) mL/min BUN/Creatinine Ratio 32.5 H (14-18) Glucose 124 H (74-106) mg/dL Calcium 7.6 L (8.5-10.1) mg/dL Magnesium 1.5 L (1.8-2.4) mg/dl Total Bilirubin (0.2-1.0) mg/dL AST (15-37) U/L ALT (16-63) U/L Alkaline Phosphatase (46-116) U/L Total Protein (6.4-8.2) g/dl Albumin (3.4-5.0) g/dl Globulin gm/dL Albumin/Globulin Ratio (1-2) Lipase (73-393) U/L Blood Type Gel Antibody Screen Crossmatch See Detail 11/26/18 11/26/18 Range/Units 10:07 14:00 WBC 7.90 (4.23-9.07) K/mm3 RBC 3.14 L (4.63-6.08) M/mm3 Hgb 9.7 L D 10.0 L (13.7-17.5) gm/L Hct 27.7 L 29.0 L (40.1-51.0) % MCV 88.2 (79.0-92.2) fl MCH 30.9 (25.7-32.2) pg MCHC 35.0 (32.2-35.5) g/dl RDW Std Deviation 41.5 (35.1-43.9) fL Plt Count 177 (163-337) K/mm3 MPV 9.5 (9.4-12.3) fl Neut % (Auto) 75.4 H (34.0-67.9) % Lymph % (Auto) 14.4 L (21.8-53.1) % [place] % (Auto) 9.6 (5.3-12.2) % Eos % (Auto) 0.4 L (0.8-7.0) Baso % (Auto) 0.1 (0.1-1.2) % Neut # (Auto) 5.95 H (1.78-5.38) K/mm3 Lymph # (Auto) 1.14 L (1.32-3.57) K/mm3 [place] # (Auto) 0.76 (0.30-0.82) K/mm3 Eos # (Auto) 0.03 L (0.04-0.54) K/mm3 Baso # (Auto) 0.01 (0.01-0.08) K/mm3 Sodium (136-145) mEq/L Potassium (3.5-5.1) mEq/L Chloride (98-107) mEq/L Carbon Dioxide (21-32) mEq/L Anion Gap (5-15) BUN (7-18) mg/dL Creatinine (0.7-1.3) mg/dL Est Cr Clr Drug Dosing mL/min Estimated GFR (MDRD) (>60) mL/min BUN/Creatinine Ratio (14-18) Glucose (74-106) mg/dL Calcium (8.5-10.1) mg/dL Magnesium (1.8-2.4) mg/dl Total Bilirubin (0.2-1.0) mg/dL AST (15-37) U/L ALT (16-63) U/L Alkaline Phosphatase (46-116) U/L Total Protein (6.4-8.2) g/dl Albumin (3.4-5.0) g/dl Globulin gm/dL Albumin/Globulin Ratio (1-2) Lipase (73-393) U/L Blood Type Gel Antibody Screen Crossmatch Result Diagrams: 11/26/18 14:00 11/26/18 10:07 Consult PN Assessment/Plan (1) GI bleed SNOMED Code(s): 39328449 Code(s): K92.2 - GASTROINTESTINAL HEMORRHAGE, UNSPECIFIED Current Visit: Yes Qualifiers: GI bleed type/associated pathology: melena Qualified Code(s): K92.1 - Melena Problem List Initiated/Reviewed/Updated: Yes Plan: 57-year-old male with upper GI bleed. The bleeding appears to be stabilized at this point - We discussed an EGD at this time during hospitalization with possible intervention. The patient would like to wait and have this done as an outpatient. Because of the high risk of complications of intervention is needed and the patient appears to be stabilizing. - Continue on PPI therapy, transition to PO PPI prior to discharge - Monitor hemoglobin every 4-6 hours - Consider advancing diet once 8 hours if stable. Hemoglobins have been achieved - Patient will be appropriate for discharge home if he continues to have stable hemoglobin and is tolerating regular diet Please call if patient has any change in status or need for any urgent surgical intervention. Surgery will sign off Tyra Sharma MD General Surgery
[2018-11-27] MEDS ORDERED: Pantoprazole 40 MG Vial IVPUSH SCH (09:00)
[2018-11-27] MEDS ORDERED: Pantoprazole 40 MG Tab.CR PO SCH (18:00)
--- NOTE | 2018-11-27 18:01 | PCM.DCSUM1 ---
Discharge Summary - Hospital Course HPI Initial Comments: Through the emergency room for admission secondary to a GI bleed. He states that 10:30 PM last night patient woke up with crampy abdominal pain, stool incontinence, and syncope. Patient will wait into the bathroom became lightheaded and passed out. Patient had difficulty getting up but when he did he had black tarry stool with solid fecal matter and watery stool. Patient did hit the back of his head and had a small abrasion evaluate by ER. Patient came to the emergency room with dizziness and was noted to be anemic with an initial hemoglobin of 8.8. Patient was also orthostatic and repeat hemoglobin after fluid resuscitation was 7.8. Patient had 2 more dark stools in the emergency room and a maroon color stool when he arrived on the floor. He received 2 units packed red blood cells this morning. Currently patient denies any lower abdominal pain. Patient states that a couple of weeks ago he did develop some digestive system problems. He generally describes it as dyspepsia and not feeling right. He took some NyQuil, prune juice, and Advil. He states over the last couple weeks he's had Advil 600 mg 2 times per week. On Monday he also had some reflux while at work and went home. He did work Monday and Monday, but after going to sleep Monday night came into the hospital. He is a nonsmoker quit 5 years ago. He smoked for approximately 20 years but less than one pack per day. Only occasional alcohol and no illicit drugs. Brief History: Patient was placed on Protonix drip and switched to by mouth Protonix morning. Start regular diet at lunch and has tolerated that well. Patient's hemoglobin stabilized last night in the mid to upper eights and has been 8.9 for last 12 hours and 8.648 hours prior to that. Patient has no abdominal pain and is doing well. Diagnosis: Stroke: No - Discharge Data Discharge Date: 11/27/18 Discharge Disposition: Home, Self-Care 01 Condition: Good - Discharge Diagnosis/Problem(s) (1) Anemia SNOMED Code(s): 482466357 ICD Code: D64.9 - ANEMIA, UNSPECIFIED Status: Acute Current Visit: Yes Qualifiers: Anemia type: other cause Other causes of anemia: other cause, not classified Qualified Code(s): D64.89 - Other specified anemias (2) GI bleed SNOMED Code(s): 36184371 ICD Code: K92.2 - GASTROINTESTINAL HEMORRHAGE, UNSPECIFIED Status: Acute Current Visit: Yes Qualifiers: GI bleed type/associated pathology: melena Qualified Code(s): K92.1 - Melena - Patient Summary/Data Consults: Consultations 11/26/18 03:03 Consult to Physician [CONS] Routine - Patient Instructions Diet: Usual Diet as Tolerated Driving: May Drive Today Showering/Bathing: May Shower - Discharge Plan *PRESCRIPTION DRUG MONITORING PROGRAM REVIEWED*: Not Applicable *COPY OF PRESCRIPTION DRUG MONITORING REPORT IN PATIENT THOM: Not Applicable Prescriptions/Med Rec: Pantoprazole Sodium [Protonix] 40 mg PO BID #60 tablet. Home Medications: Home Meds Pantoprazole Sodium [Protonix] 40 mg PO BID #60 tablet. 11/27/18 [Rx] Oxygen Therapy Mode: Room Air Patient Handouts: Complete Blood Count, Hypotension, [id number], Near-Syncope , [id number], Gastrointestinal Bleeding, [id number], Blood Transfusion, Adult, Care After, [place], Bloody Diarrhea Forms: ED Department Discharge Referrals: Tyra Sharma MD [Physician] - 12/03/18 11:15 am (Follow up in 1 week at [facility] on December 03 at 11:15 to discuss your need for an EGD to evaluate the source of your bleeding.) Dick Espino MD [Primary Care Provider] - (Please schedule a hospital follow-up appointment for Monday, November 30. You will need to have your hemoglobin checked at this appointment. ) - Discharge Summary/Plan Comment DC Time >30 min.: Yes Discharge Summary/Plan Comment: Patient did well after 2 units of packed red blood cells. He stabilized his hemoglobin at 8.9. He will follow up with his primary care provider in 2 days for recheck hemoglobin. His son is staying with him for the next 24-48 hours and he understands if he becomes lightheaded, dizzy, develops abdominal pain, or passes black tarry stools or right red blood per rectum he will come back to the emergency room. He'll be placed on Protonix 40 mg twice a day. Follow-up with Dr. Pastrana in surgery. - General Info Date of Service: 11/27/18 Admission Dx/Problem (Free Text: Admission Diagnosis/Problem Admission Diagnosis/Problem GI bleed not requiring more than 4 units of blood in 24 hours, ICU, or surgery Subjective Update: Patient denies any abdominal pain. He did have a few more bowel movements overnight with dark blood, but that resolved over the afternoon. He is walking in the halls and denies any dizziness or lightheadedness. He is requesting go home. Functional Status: Reports: Pain Controlled - Review of Systems General: Reports: No Symptoms HEENT: Reports: No Symptoms Pulmonary: Reports: No Symptoms Cardiovascular: Reports: No Symptoms Gastrointestinal: Reports: No Symptoms. Denies: Abdominal Pain, Diarrhea - Patient Data Vitals - Most Recent: Last Vital Signs Temp 98.2 F 11/27/18 17:27 Pulse 70 11/27/18 17:27 Resp 14 11/27/18 17:27 BP 138/77 11/27/18 17:27 Pulse Ox 95 11/27/18 17:27 Orthostatic Blood Pressure [ 75/55 Standing] Orthostatic Blood Pressure [ 100/63 Sitting] Orthostatic Blood Pressure [ 116/68 Supine] Weight - Most Recent: 232 lb 3.2 oz I&O - Last 24 hours: Intake & Output 11/27/18 11/27/18 11/27/18 06:59 14:59 22:59 Intake Total 6219 587 2985 Balance 2370 952 1943 Lab Results - Last 24 hrs: Laboratory Results - last 24 hr 11/26/18 11/26/18 11/27/18 Range/Units 18:05 23:50 03:05 WBC (4.23-9.07) K/mm3 RBC (4.63-6.08) M/mm3 Hgb 10.2 L 8.7 L D 8.6 L (13.7-17.5) gm/L Hct 29.2 L 25.4 L (40.1-51.0) % MCV (79.0-92.2) fl MCH (25.7-32.2) pg MCHC (32.2-35.5) g/dl RDW Std Deviation (35.1-43.9) fL Plt Count (163-337) K/mm3 MPV (9.4-12.3) fl Neut % (Auto) (34.0-67.9) % Lymph % (Auto) (21.8-53.1) % [place] % (Auto) (5.3-12.2) % Eos % (Auto) (0.8-7.0) Baso % (Auto) (0.1-1.2) % Neut # (Auto) (1.78-5.38) K/mm3 Lymph # (Auto) (1.32-3.57) K/mm3 [place] # (Auto) (0.30-0.82) K/mm3 Eos # (Auto) (0.04-0.54) K/mm3 Baso # (Auto) (0.01-0.08) K/mm3 Sodium (136-145) mEq/L Potassium (3.5-5.1) mEq/L Chloride (98-107) mEq/L Carbon Dioxide (21-32) mEq/L Anion Gap (5-15) BUN (7-18) mg/dL Creatinine (0.7-1.3) mg/dL Est Cr Clr Drug Dosing mL/min Estimated GFR (MDRD) (>60) mL/min BUN/Creatinine Ratio (14-18) Glucose (74-106) mg/dL Calcium (8.5-10.1) mg/dL Magnesium (1.8-2.4) mg/dl Total Bilirubin (0.2-1.0) mg/dL AST (15-37) U/L ALT (16-63) U/L Alkaline Phosphatase (46-116) U/L Total Protein (6.4-8.2) g/dl Albumin (3.4-5.0) g/dl Globulin gm/dL Albumin/Globulin Ratio (1-2) 11/27/18 11/27/18 11/27/18 Range/Units 05:28 05:28 11:05 WBC 5.46 (4.23-9.07) K/mm3 RBC 2.82 L (4.63-6.08) M/mm3 Hgb 8.6 L 8.9 L (13.7-17.5) gm/L Hct 25.6 L 26.9 L (40.1-51.0) % MCV 90.8 (79.0-92.2) fl MCH 30.5 (25.7-32.2) pg MCHC 33.6 (32.2-35.5) g/dl RDW Std Deviation 43.7 (35.1-43.9) fL Plt Count 147 L (163-337) K/mm3 MPV 9.2 L (9.4-12.3) fl Neut % (Auto) 69.2 H (34.0-67.9) % Lymph % (Auto) 17.4 L (21.8-53.1) % [place] % (Auto) 11.4 (5.3-12.2) % Eos % (Auto) 1.6 (0.8-7.0) Baso % (Auto) 0.2 (0.1-1.2) % Neut # (Auto) 3.78 (1.78-5.38) K/mm3 Lymph # (Auto) 0.95 L (1.32-3.57) K/mm3 [place] # (Auto) 0.62 (0.30-0.82) K/mm3 Eos # (Auto) 0.09 (0.04-0.54) K/mm3 Baso # (Auto) 0.01 (0.01-0.08) K/mm3 Sodium 140 (136-145) mEq/L Potassium 4.1 (3.5-5.1) mEq/L Chloride 107 (98-107) mEq/L Carbon Dioxide 28 (21-32) mEq/L Anion Gap 9.1 (5-15) BUN 13 (7-18) mg/dL Creatinine 0.8 (0.7-1.3) mg/dL Est Cr Clr Drug Dosing 110.47 mL/min Estimated GFR (MDRD) > 60 (>60) mL/min BUN/Creatinine Ratio 16.3 (14-18) Glucose 113 H (74-106) mg/dL Calcium 8.0 L (8.5-10.1) mg/dL Magnesium 2.0 (1.8-2.4) mg/dl Total Bilirubin 0.5 (0.2-1.0) mg/dL AST 13 L (15-37) U/L ALT 17 (16-63) U/L Alkaline Phosphatase 50 (46-116) U/L Total Protein 5.0 L (6.4-8.2) g/dl Albumin 2.5 L (3.4-5.0) g/dl Globulin 2.5 gm/dL Albumin/Globulin Ratio 1.0 (1-2) // Range/Units 17:05 WBC (4.23-9.07) K/mm3 RBC (4.63-6.08) M/mm3 Hgb 8.9 L (13.7-17.5) gm/L Hct (40.1-51.0) % MCV (79.0-92.2) fl MCH (25.7-32.2) pg MCHC (32.2-35.5) g/dl RDW Std Deviation (35.1-43.9) fL Plt Count (163-337) K/mm3 MPV (9.4-12.3) fl Neut % (Auto) (34.0-67.9) % Lymph % (Auto) (21.8-53.1) % [place] % (Auto) (5.3-12.2) % Eos % (Auto) (0.8-7.0) Baso % (Auto) (0.1-1.2) % Neut # (Auto) (1.78-5.38) K/mm3 Lymph # (Auto) (1.32-3.57) K/mm3 [place] # (Auto) (0.30-0.82) K/mm3 Eos # (Auto) (0.04-0.54) K/mm3 Baso # (Auto) (0.01-0.08) K/mm3 Sodium (136-145) mEq/L Potassium (3.5-5.1) mEq/L Chloride (98-107) mEq/L Carbon Dioxide (21-32) mEq/L Anion Gap (5-15) BUN (7-18) mg/dL Creatinine (0.7-1.3) mg/dL Est Cr Clr Drug Dosing mL/min Estimated GFR (MDRD) (>60) mL/min BUN/Creatinine Ratio (14-18) Glucose (74-106) mg/dL Calcium (8.5-10.1) mg/dL Magnesium (1.8-2.4) mg/dl Total Bilirubin (0.2-1.0) mg/dL AST (15-37) U/L ALT (16-63) U/L Alkaline Phosphatase (46-116) U/L Total Protein (6.4-8.2) g/dl Albumin (3.4-5.0) g/dl Globulin gm/dL Albumin/Globulin Ratio (1-2) Med Orders - Current: Current Medications Ondansetron HCl (Zofran) 4 mg IV Q4H PRN PRN Reason: Nausea/Vomiting Pantoprazole Sodium (Protonix) 40 mg PO ACBREAKFAST [facility] Sodium Chloride (Saline Flush) 10 ml FLUSH ASDIRECTED PRN PRN Reason: Keep Vein Open Last Admin: 11/26/18 00:27 Dose: 10 ml Discontinued Medications Pantoprazole Sodium 80 mg/ (Sodium Chloride) 100 mls @ 10 mls/hr IV Q10H [facility] Last Admin: 11/26/18 10:45 Dose: 10 mls/hr Sodium Chloride (Normal Saline) 1,000 mls @ 1,000 mls/hr IV .BOLUS STA Stop: 11/26/18 01:06 Last Admin: 11/26/18 00:21 Dose: 1,000 mls/hr Sodium Chloride (Normal Saline) Confirm Administered Dose 1,000 mls @ as directed .ROUTE .STK-MED ONE Stop: 11/26/18 01:39 Last Admin: 11/26/18 04:51 Dose: Not Given Lactated Ringer's (Ringers, Lactated) 1,000 mls @ 125 mls/hr IV ASDIRECTED [facility] Last Admin: 11/26/18 10:48 Dose: 125 mls/hr Magnesium Sulfate 4 gm/ Premix 50 mls @ 12.5 mls/hr IV ONETIME ONE Stop: 11/26/18 14:44 Last Admin: 11/26/18 10:51 Dose: 12.5 mls/hr Iopamidol (Isovue-300 (61%)) 100 ml IVPUSH ONETIME ONE Stop: 11/26/18 01:55 Last Admin: 11/26/18 01:57 Dose: 100 ml Ondansetron HCl (Zofran) 4 mg IVPUSH ONETIME ONE Stop: 11/26/18 00:08 Last Admin: 11/26/18 00:22 Dose: 4 mg Pantoprazole Sodium (Protonix Iv) 80 mg IVPUSH BOLUS ONE Stop: 11/26/18 00:11 Last Admin: 11/26/18 00:23 Dose: 80 mg Pantoprazole Sodium (Protonix Iv) 40 mg IVPUSH Q12H [facility] Last Admin: 11/27/18 10:29 Dose: 40 mg - Exam General: Reports: Alert, Oriented HEENT: Reports: Pupils Equal, Pupils Reactive Neck: Reports: Supple Lungs: Reports: Clear to Auscultation, Normal Respiratory Effort Cardiovascular: Reports: Regular Rate, Regular Rhythm GI/Abdominal Exam: Normal Bowel Sounds, Soft, Non-Tender, No Organomegaly, No Distention Extremities: Normal Inspection, Normal Range of Motion, Non-Tender, No Pedal Edema Skin: Reports: Warm, Dry, Intact Neurological: Reports: No New Focal Deficit Psy/Mental Status: Reports: Alert, Normal Affect, Normal Mood
== END 2018-11-27 18:32 | disposition home or self-care (01) | DRG 254 ==
LOC: JD.ED 23:29 → JD.ICU 11-26 03:57 → JD.MS 11-27 06:00
PROVIDERS: ADMIT Family Medicine; ATTEND Family Medicine
PROC: 30233N1 Transfusion of Nonautologous Red Blood Cells into Peripheral Vein, Percutaneous Approach (ICD-10-PCS; principal; 2018-11-25)
DX: K92.1 Melena (principal); Z87.891 Personal history of nicotine dependence; Z86.010 Personal history of colon polyps; D64.89 Other specified anemias
CPT/HCPCS: 36415; 36430; 74177; 74177-26; 80048; 80053; 83690; 83735; 85014; 85018; 85025; 86850; 86900; 86901; 86922; 96365; 96366; 96375; 99284; 99285-25; A9270-GY; C9113; J2405; J3475; J7030; J7040; J7120; P9016; Q9967